=== PATIENT | female | born 1955 | race Caucasian/White ===

== ENCOUNTER → 2016-09-08 11:40 | Emergency (ER) | payer BC, OTHER ==
[~2016-09-08 11:40] MED LIST: Cephalexin CAP* 500 MG PO ONE; Ibuprofen TAB* 800 MG PO ONE; Tetan/Diph/Pertus SYR(Tdap)* 0.5 ML SYR(BOOSTRIX) use SYR IM ONE
[2016-09-08 11:51] VITALS: BP 110/72
--- NOTE | 2016-09-08 15:55 | RAD ---
Indication: Left wrist injury, fall from ladder 3 views of left wrist demonstrates comminuted fracture distal radius with extension into the intra-articular space. Slight dorsal angulation is noted. IMPRESSION: Comminuted distal radius fracture with extension of the fracture line into the intra-articular space.
--- NOTE | 2016-09-08 15:56 | RAD ---
Indication: Right forearm injury after fall 2 views of the right forearm demonstrates vertical lucency in the distal ulna. I cannot totally exclude a fracture of the distal ulna. No other fractures are identified. IMPRESSION: Question nondisplaced fracture of the distal ulna. The radius is intact.
--- NOTE | 2016-09-08 16:00 | RAD ---
Indication: Left ankle pain and injury. 3 views of left ankle demonstrate soft tissue swelling laterally. There is no evidence of fracture. No other bone or joint abnormalities identified. Ankle mortise is intact. IMPRESSION: Soft tissue swelling laterally without evidence of fracture.
--- NOTE | 2016-09-08 16:01 | RAD ---
Indication: Fall from ladder, lateral malleolus pain. 2 views of the left lower leg demonstrates no fracture. No other bone or joint abnormality is identified. IMPRESSION: No fracture of the left lower leg is noted.
--- NOTE | 2016-09-08 19:00 | ED ---
Adult Trauma - HPI Summary HPI Summary: Pt here w/ fall from ladder. Was about 8 feet up when the ladder collapsed - she "rode it down" as its base widened and she eventually hit the ground. Denies LOC, CHAPIN but has swelling over her Lt lower lip - denies dental pain, laxity of tooth. B/L wrist pain - Rtr more in forearm, Lt more in wrist swelling nad bruising in both - denies numbness, tingling, weakness. No back, chest or ab pain. She did cut her LT sharma and has pain in Lt ankle w/ swelling - denies numbness, tingling, weakness here. Unsure of last tetanus vaccine. - History of Current Complaint Chief Complaint: EDExtremityUpper Stated Complaint: WRIST INJURY/BOTH Time Seen by Provider: 09/08/16 14:02 Hx Obtained From: Patient, Family/[employer]er - Pain Intensity: 9 - Allergy/Home Medications Allergies/Adverse Reactions: Allergies Allergy/AdvReac Type Severity Reaction Status Date / Time Codeine Allergy Nausea And Verified 09/08/16 11:48 Vomiting PMH/Surg Hx/FS Hx/Imm Hx Previously Healthy: Yes Endocrine/Hematology History: Denies: Hx Anticoagulant Therapy, Hx Blood Disorders - Cancer History Hx Chemotherapy: No Hx Radiation Therapy: No Infectious Disease History: No Infectious Disease History: Denies: Traveled Outside the [place] in Last 30 Days - Social History Alcohol Use: None Substance Use Type: Reports: None Smoking Status (MU): Never Smoked Tobacco Physical Exam Vital Signs On Initial Exam: Initial Vitals Temp Pulse Resp BP Pulse Ox 96.4 F 71 18 110/72 98 09/08/16 11:49 09/08/16 11:49 09/08/16 11:49 09/08/16 11:49 09/08/16 11:49 Procedures - Procedure Summary Procedure Summary: Splint #2 Rt UE - ulnar gutter - fingerglass (handmade) - NV intact before and after - Splinting Location: Lt UE Hand-Made Type: fiberglass Splint: sugar-tong Pre-Proc Neuro Vasc Exam: normal Post-Proc Neuro Vasc Exam: normal - Laceration/Wound Repair 1 Location: lower extremity - Lt sharma Description: Linear Anesthesia: Local, Lido, Epi Length, Depth and Shape: 1.5cm x 4mm (bone observed) Betadine Prep?: Yes Irrigated w/ Saline (ccs): 250 - hibaclens + sterile water Laceration/Wound Explored: clean Closure: Single Layer Suture Type: Nylon - 4-0 Number of Sutures: 4 - 1 horizontal mattress, 3 simple interrupted Layer Closure?: No Sterile Dressing Applied?: Yes - triple anbx ointment + gauze + TREY Diagnostics - Vital Signs Vital Signs Temp Pulse Resp BP Pulse Ox 09/08/16 11:49 96.4 F 71 18 110/72 98 - Laboratory Lab Statement: Any lab studies that have been ordered have been reviewed, and results considered in the medical decision making process. Discharge - Discharge Plan Condition: Stable Disposition: HOME Prescriptions: Cephalexin CAP* [Keflex 500 CAP*] 500 mg PO QID #38 cap Patient Education Materials: Wrist Fracture in Adults (ED), Splint Care (ED), Ankle Sprain (ED), Contusion in Adults (ED), Abrasion (ED), Laceration (ED), Care For Your Stitches (ED) Referrals: Franck Engle DO [Primary Care Provider] - Herbert Marie MD [Medical Doctor] - Additional Instructions: Wrist Fractures: Rest, ice, elevate wrists and ankle Keep splints clean, dry and intact until seen by orthopedics - call tomorrow for an appointment Ankle Sprain: You may remove your cam walking boot while non-weight bearing but wear with weight bearing - limit weight bearing Laceration: Keep wound dressing clean, dry and intact for 48 hours. After this time, you may remove dressing and gently wash wound with soap and water - rinse well and pat dry - reapply triple antibiotic ointment and clean gauze dressing with TREY wrap. You may remove walking boot to clean wound. Your sutures may be removed in 14 days by the orthopedist or your PCP. You were started on antibiotic due to the deep nature and location of your sharma wound. Complete course and follow- up with PCP for wound recheck. Notify orthopedics you have wound dressings beneath your splint on your Left upper extremity. Dressings need to be removed and wounds assessed. You may take ibuprofen 600mg every 6 hours and acetaminophen 650mg every 6 hours for pain. *If you develop fever, chills, streaking, swelling, purulent drainage, fever from any of your wounds, seek medical attention sooner than later.
== END | disposition home or self-care (01) ==
LOC: ED 11:40
DX: S81.812A Laceration without foreign body, left lower leg, initial encounter (principal); W11.XXXA Fall on and from ladder, initial encounter; Y93.9 Activity, unspecified; Y92.9 Unspecified place or not applicable
CPT/HCPCS: 90471; 90715; 99283; A9270-GY

== ENCOUNTER 2022-03-07 11:39 | Observation (INO) ==
[~2022-03-07 11:39] MED LIST changes: +Buffered Lidocaine 1% SYRIN 1 ml INTRADERM ONE; -Cephalexin CAP* 500 MG PO ONE; -Ibuprofen TAB* 800 MG PO ONE; +Lactated Ringers 1000 ml BAG 1,000 ML IV SCH; -Tetan/Diph/Pertus SYR(Tdap)* 0.5 ML SYR(BOOSTRIX) use SYR IM ONE
[2022-03-07] MEDS ORDERED: ceFAZolin 2 GM in NS PREMIX 2 GM/100 ML BAG IVPB ONE (12:03)
[2022-03-07] MEDS ORDERED: Acetaminophen IV 1 GM/100ML 1,000 MG/100 ML BAG IV PRN (13:34)
[2022-03-07] MEDS ORDERED: Ondansetron 4 mg VIAL 2 MG/ML 2 ml VIAL IV PRN ×2 (13:34→16:58)
[2022-03-07] MEDS ORDERED: HYDROmorphone 1 MG/1 ML SYRINGE IV PRN (13:34)
[2022-03-07] MEDS ORDERED: Naloxone 0.4 mg VIAL 0.4 mg/ml 1 ml VIAL IV PRN (13:34)
[2022-03-07] MEDS ORDERED: fentaNYL 100 mcg/2 ml 50 MCG/ML VIAL IV PRN (13:34)
[2022-03-07] MEDS ORDERED: Acetaminophen IV 1 GM/100ML 1,000 MG/100 ML BAG IV ONE (13:56)
[2022-03-07] MEDS ORDERED: Ondansetron 4 mg VIAL 2 MG/ML 2 ml VIAL ONE (14:16)
[2022-03-07] MEDS ORDERED: Phenylephrine IV 10 MG/ML 1 ml VIAL ONE (14:16)
[2022-03-07] MEDS ORDERED: Dexamethasone IV 4 MG/ML VIAL 1 ml VIAL ONE (14:16)
[2022-03-07] MEDS ORDERED: Midazolam 2 mg/2 ml VIAL 1 mg/ml 2 ml VIAL (2 mg) ONE (14:22)
[2022-03-07] MEDS ORDERED: Propofol 10 MG/ML 20 ML BTL ONE (16:02)
[2022-03-07] MEDS ORDERED: Lidocaine 2% PF 5 ML VIAL ONE (16:02)
[2022-03-07] MEDS ORDERED: Ondansetron ODT 4 mg TAB 4 MG TAB PO PRN (16:58)
[2022-03-07] MEDS ORDERED: Morphine 2 MG/ML SYRINGE IV PRN (16:58)
[2022-03-07] MEDS ORDERED: Magnesium Hydroxide LIQ 30 ML UDC PO PRN (16:58)
[2022-03-07] MEDS ORDERED: Lactulose 30 ml UDC PO PRN (16:58)
[2022-03-07] MEDS ORDERED: ceFAZolin 1 GM ADVAN 1 GM in NS 0.9% 50 ML 50 ML IVPB SCH (17:00)
[2022-03-07] MEDS: Lactated Ringers 1000 ml BAG 1,000 ML IV SCH (18:30)
[2022-03-07] MEDS: Magnesium Hydroxide LIQ 30 ML UDC PO SCH (20:18)
[2022-03-07] MEDS: ceFAZolin 1 GM ADVAN 1 GM in NS 0.9% 50 ML 50 ML IVPB SCH (21:42)
[2022-03-08] MEDS: Lactated Ringers 1000 ml BAG 1,000 ML IV SCH ×2 (04:02→10:25)
[2022-03-08] MEDS: ceFAZolin 1 GM ADVAN 1 GM in NS 0.9% 50 ML 50 ML IVPB SCH ×2 (06:00→14:25)
[2022-03-08 06:38] LABS: Hematocrit 31 % (35-47); Hemoglobin 10.1 g/dL (12.0-16.0); Platelet Count 158 10^3/uL (150-450)
[2022-03-08 07:38] LABS: Calcium 8.4 mg/dL (8.6-10.3); Potassium 4.2 mmol/L (3.5-5.0); eGFR CKD-EPI 50.9 (>60)
[2022-03-08] MEDS ORDERED: Vitamin THERAPEUTIC TAB PO SCH (09:00)
[2022-03-08] MEDS ORDERED: Lactated Ringers 1000 ml BAG 500 ML IV ONE ×2 (09:00→12:00)
[2022-03-08] MEDS ORDERED: Scopolamine 1 mg/72hr PATCH TRANSDERM SCH (09:00)
[2022-03-08] MEDS: Magnesium Hydroxide LIQ 30 ML UDC PO SCH (10:13)
[2022-03-08 15:40] VITALS: BP 112/63
== END 2022-03-08 17:10 | disposition home or self-care (01) ==
LOC: SSU 11:39 → OR 11:39
PROVIDERS: ADMIT Orthopaedic Surgery Adult Reconstructive Orthopaedic Surgery; ATTEND Orthopaedic Surgery Adult Reconstructive Orthopaedic Surgery